=== PATIENT | female | born 1975 | race American Indian/Alaskan Native ===

== ENCOUNTER 2021-07-29 09:42 | Outpatient (CLI) | payer OTHER ==
--- NOTE | 2021-07-29 11:48 | XRay Report ---
Pelvis and left hip 3 views INDICATION: Hip pain FINDINGS: Left total hip arthroplasty appears satisfactory in position. No acute fracture or dislocat ion. No soft tissue abnormality. Signer Name: Kun Bejarano MD Signed: 07/29/2021 11:44 AM Workstation Name: [id number]
== END 2021-07-29 09:43 | disposition home or self-care (01) ==
LOC: XRAY 09:42
PROVIDERS: ATTEND Internal Medicine
DX: M25.552 Pain in left hip (principal); Z96.642 Presence of left artificial hip joint